=== PATIENT | female | born 1955 | race Caucasian/White ===

== ENCOUNTER 2017-08-08 16:02 | Emergency (ER) | payer OTHER ==
[~2017-08-08] VITALS: Ht 170.2 cm; Wt 108.2 kg
[~2017-08-08 16:02] MED LIST: ASPIR 8181 MG PO; DIOVAN HCT; LASIX20 MG PO; LISINOPRIL-HCT1 EAC1 PO; METOPROLOL SUCC25 MG PO; POTASSIUM CHLO10 MEQ PO; [UNRECOGNIZED DRUG - REMARK]
[2017-08-08] MEDS ORDERED: DIPHTH/TETANUS/ACEL. PERTUSSIS 0.5 ML SYR IM ONE (17:00)
[2017-08-08] MEDS ORDERED: IBUPROFEN 600 MG TAB PO STA (18:27)
[2017-08-08 18:40] VITALS: BP 142/81
[2017-08-09] MEDS ORDERED: BACITRACIN ZINC 15 GM OINT TOP SCH (09:00)
== END 2017-08-08 18:41 | disposition home or self-care (01) ==
LOC: FSED 16:02
DX: S62.111A Displaced fracture of triquetrum [cuneiform] bone, right wrist, initial encounter for closed fracture (principal); S00.81XA Abrasion of other part of head, initial encounter; S80.211A Abrasion, right knee, initial encounter; W01.0XXA Fall on same level from slipping, tripping and stumbling without subsequent striking against object, initial encounter; Y93.01 Activity, walking, marching and hiking
CPT/HCPCS: 70450; 96372; 99284